=== PATIENT | female | born 1990 | race African-American/Black ===

== ENCOUNTER 2016-11-15 09:46 | Emergency (ER) | payer OTHER ==
[~2016-11-15 09:46] MED LIST: CERTAGEN PO; LORTAB ELIXIR PO; MACRODANTIN PO
[2016-11-15 10:25] LABS: BASOPHIL% 0.6 % (0-2.5); EOSINOPHIL% 0.7 % (0.0-7.0); HEMATOCRIT 40.9 % (35.0-45.0); HEMOGLOBIN 13.6 gm/dL (12.0-16.0); LYMPHOCYTE# 2.2 X10e3 (1.0-3.5); LYMPHOCYTE% 52.6 % (17.0-45.0); MEAN CELL VOLUME 90.6 FL (83-96); MEAN CORPUSCULAR HEMOGLOBIN 30.1 PG (28-34); MEAN CORPUSCULAR HGB CONC 33.2 g/dL (30-36); MEAN PLATELET VOLUME 7.5 FL (6.5-11.5); MONOCYTE# 0.4 X10e3 (0-1.0); MONOCYTE% 8.4 % (3.0-12.0); NEUTROPHIL# 1.6 X10e3 (1.5-7.1); NEUTROPHIL% 37.7 % (40-75); PLATELET COUNT 277 X10e3 (140-420); RED BLOOD COUNT 4.51 X10e (3.90-5.30); RED CELL DISTRIBUTION WIDTH 11.8 % (11.0-15.5); WHITE BLOOD COUNT 4.2 X10e3 (4.0-10.5)
[2016-11-15 10:28] LABS: DIFF IND YES
[2016-11-15 10:35] LABS: INR 1.1; PARTIAL THROMBOPLASTIN TIME 26.6 SECONDS (23.5-31.3); PROTHROMBIN TIME (PATIENT) 11.1 SECONDS (9.6-11.5)
[2016-11-15 10:47] LABS: ANISOCYTOSIS SL; OVALOCYTES PRESENT; PLATELET ESTIMATE NORMAL (NORMAL); RBC NORMAL YES
[2016-11-15 10:52] LABS: ALBUMIN SERUM 4.5 g/dL (3.5-5.0); BILIRUBIN, DIRECT 0.1 mg/dL (0.0-0.2); BILIRUBIN,INDIRECT 0.9 mg/dL (0.0-0.9); PROTEIN TOTAL SERUM 7.7 g/dL (6.0-8.3)
== END 2016-11-15 11:02 | disposition home or self-care (01) ==
LOC: CED 09:46 → CFTX 09:46
PROVIDERS: Physician Assistant
DX: S80.12XA Contusion of left lower leg, initial encounter (principal); S80.11XA Contusion of right lower leg, initial encounter; X58.XXXA Exposure to other specified factors, initial encounter; Y92.009 Unspecified place in unspecified non-institutional (private) residence as the place of occurrence of the external cause
CPT/HCPCS: 36415; 80076; 84703; 85025; 85610; 85730; 99283